=== PATIENT | male | born 1965 | race African-American/Black ===

== ENCOUNTER 2023-03-13 23:41 | Emergency (ER) | payer OTHER ==
--- OUTSIDE RECORDS SUMMARY | 2023-03-13 23:45 | XMS REPORT | Continuity of Care Document ---
:1965 Author Organization [facility] t Address [address] [place] [address] [place] [id number] Care Team Providers Name Role Phone MONICA WAYNE Primary Care Physician Unavailable Pob, [facility] Main Attending Clinician Unavailable Nader Johnson MD Attending Clinician NADER JOHNSON Attending Clinician Unavailable Doctor Unassigned, [place] Attending Clinician Unavailable MAGALIS SILVEIRA Attending Clinician Unavailable Magalis Silveira MD Attending Clinician NADER LOBATO Attending Clinician Unavailable Nader Lobato MD Attending Clinician Monica Wayne MD Attending Clinician MONICA WAYNE Attending Clinician Unavailable Zi White DO Attending Clinician Marialuisa Gaffney RN Attending Clinician Unavailable Yusra Street Attending Clinician Lorri Portillo Attending Clinician Jerry Sage MD Attending Clinician Lorri FORD Attending Clinician Unavailable MAGALIS SILVEIRA Admitting Clinician Unavailable NADER LOBATO Admitting Clinician Unavailable Nader Lobato MD Admitting Clinician Chu HORNER, Jerry García Admitting Clinician Payers Payer Name Policy Type Policy Number Effective Date Expiration Date S junior Problems Condition Condition Condition Status Onset Resolution Last Treating Co mments Source Name Details Category Date Date Treatment Clinician Date Gastroesop Gastroesop Disease Active U nivers hageal hageal 5-20 ity of reflux reflux 00:00: [place] disease disease 00 Medical Branch [place] Atlanto[place]i Disease Active U nivers al al 8-16 ity of instabilit [place] Medical [place] Obesity Obesity Disease Active Univers (BMI (BMI 8-16 ity of 30-39.9) 30-39.9) 00:00: 00 Medical Branch Hyperurice Hyperurice Disease Active Overview : Univers kenny kenny 12-04 Formattin ity of 00:00: g of this [place] note Medical might be Branch different from the original. Formattin g of this note might be different from the original. Controlle d with allopurin ol 100mg uric acid 06/2021 4.8 Intellectu Intellectu Disease Active U nivers al al 816 ity of functionin functionin [place] Medical disability disability Br anch Mixed Mixed Disease Active Overview: Univ s hyperlipid hyperlipid 12-04 Formattin ity of emia emia 00:00: g of this [place] note Medical might be Branch different from the original. Formattin g of this note might be different from the original. 06/2021 lipid profile total cholester ol 133, TG 89, HDL 53, LDL 62. Cont atorvasta tin Slow Slow Disease Active Univers transit transit 16 ity of constipati constipati [place] Medical [place] Stage 3a Stage 3a Disease Active Overview: Un [place] chronic chronic 12-04 Formattin ity o f kidney kidney 00:00: g of this [place] disease disease 00 note Medical might be Branch different from the original. Formattin g of this note might be different from the original. 06/2021 BUN/Creat 13/0.98 Type 2 Type 2 Disease Active Overview: Univer s diabetes diabetes 8-16 Formattin ity of mellitus mellitus 00:00: g of this [place] 00 note Medical might be Branch different from the original. Formattin g of this note might be different from the original. 06/2021 A1C 5.6%Last Assessmen t & Plan: Formattin g of this note might be different from the original. 01/30/22: repeat hgba1c 5.3 from 11/09 labs. Will reduce metformin to 500 mg daily. Repeat hgba1c in 3 months Allergies, Adverse Reactions, Alerts Allergy Allergy Status Severity Reaction(s) Onset Inactive Treating Comm ents Source Name Type Date Date Clinician NO KNOWN Drug Active Univers ALLERGIE Class ity of S [facility] Social History Social Habit Start Date Stop Date Quantity Comments Source Gender identity [facility] Sexual orientation [facility] Exposure to 2022-08-17 2022-08-27 Not sure [facility] SARS-CoV-2 (event) 00:00:00 10:07:00 [facility] Alcohol intake 2022-05-21 2022-05-21 Lifetime University of 00:00:00 00:00:00 non-drinker [facility] (finding) Branch History of Social 2022-05-21 2022-05-21 Univers ity of function 00:00:00 00:00:00 [facility] Tobacco use and 2022-03-01 2022-03-01 Smokeless Universit y of exposure 00:00:00 00:00:00 tobacco non-user [facility] dical Exline Sex Ass[birth year] At [birth year] Universit y of 00:00:00 00:00:00 [facility] Smoking Status Start Date Stop Date Source Never smoked tobacco [facility] Tobacco smoking consumption [facility] Branch Medications Ordered Filled Start Stop Current Ordering Indication Dosage Frequency Signature Comments Components Source Medication Medication Date Date Medication? Clinician (SIG) Name Name ketorolac No 30mg 30 mg, Unive rs (TORADOL) 05-21 Intramuscu ity of injection 19:00: 18:16 lar, ONCE, [place] 30 mg 00 :00 1 dose, On Medical Tue Branch 05/21/22 at 1300, Routine ibuprofen Yes [id number] 600mg Take 1 U nivers 600 mg 1-31 tablet by ity of tablet 00:00: mouth [place] 00 every 6 Medical (six) Branch hours as needed for Pain (scale 4-6). ibuprofen 3-0 Yes [id number] 600mg Take 1 U nivers 600 mg 1-31 tablet by ity of tablet 00:00: mouth [place] 00 every 6 Medical (six) Branch hours as needed for Pain (scale 4-6). ibuprofen 2022-0 Yes [id number] 600mg Take 1 U nivers 600 mg 1-31 tablet by ity of tablet 00:00: mouth [place] 00 every 6 Medical (six) Branch hours as needed for Pain (scale 4-6). ibuprofen 2022-0 Yes [id number] 600mg Take 1 U nivers 600 mg 1-31 tablet by ity of tablet 00:00: mouth [place] 00 every 6 Medical (six) Branch hours as needed for Pain (scale 4-6). ibuprofen 2022-0 Yes [id number] 600mg Take 1 U nivers 600 mg 1-31 tablet by ity of tablet 00:00: mouth [place] 00 every 6 Medical (six) Branch hours as needed for Pain (scale 4-6). neomycin-po 2021-04- No PRN, Unive rs lymyxin-dex 05-07 Starting ity of amethasone 18:46: 19[facility] :23 03/07/22 Medic al 3.5 at 1246, Branch mg/g-10,000 Until [facility] unit/g-0.1 03/07/22 % at 1308, ophthalmic Routine, ointment Intra-op NaCl 0.9% 2021-04- No PRN, Univers (NS) 05-07 Starting ity of injection 18:44: 19:08 on Patricia [place] 00 :23 03/07/22 Medical at 1244, Branch Until Patricia 03/07/22 at 1308, Routine, Intra-op gentamicin 2021-04- No PRN, Univer s injection 05-07 Starting ity o f 18:44: 19:08 on Patricia [place] 00 :23 03/07/22 Medical at 1244, Branch Until [place] 03/07/22 at 1308, GREG, Intra-op dexamethaso 2021-04- No PRN, Unive rs ne 05-07 Starting ity of (DECADRON 18:44: 19:08 on Patricia [place] PHOSPHATE) 00 :23 03/07/22 Medic al injection at 1244, Branch Until [place] 03/07/22 at 1308, Routine, Intra-op ceFAZolin 2021-04- No PRN, Univers (ANCEF) 05-07 Starting ity of injection 18:44: 19:08 on Patricia [place] 00 :23 03/07/22 Medical at 1244, Branch Until [place] 03/07/22 at 1308, GREG, Intra-op EPINEPHrine 2021-04- No PRN, Unive rs (PF) 05-07 Starting ity of 1:1,000 (1 18:21: 19:08 on [place] mg/mL) 00 :23 03/07/22 Medical (ADRENALIN at 1221, Branc h (PF)) Until [place] injection 03/07/22 at 1308, Routine, Intra-op chondroitin 2021-04- No PRN, Unive rs sulf-sod 05-07 Starting ity of hyaluronate 18:21: 19:08 on [place] (DUOVISC 00 :23 03/07/22 Medical VISCO at 1221, Branch ELASTIC) Until [place] intraocular 03/07/22 injection at 1308, Routine, Intra-op balanced 2021-04- No PRN, Univers salt soln 05-07 Starting ity o f no.2 irrig. 18:21: 19:08 on [place] (BSS) 00 :23 03/07/22 Medical ophthalmic at 1221, Branc h solution Until [place] 03/07/22 at 1308, Routine, Intra-op water for 2021-04- No PRN, Univers irrigation 05-07 Starting ity of irrigation 18:19: 19:08 on [place] solution 00 :23 03/07/22 Medical at 1219, Branch Until [place] 03/07/22 at 1308, Routine, Intra-op tetracaine 2021-04- No PRN, Univer s (PONTOCAINE 05-07 Starting ity of ) 0.5 % 18:17: 19:08 on [facility] ophthalmic 00 :23 03/07/22 Medic al drops at 1217, Branch Until [place] 03/07/22 at 1308, Routine, Intra-op cyclopent 2021-04- No .5mL 0.5 mL, Univ ers 1%-tropic 05-07 Right Eye, ity of 1%-phenyl 17:00: 16:57 ONCE, 1 [place] 2.5%-ketor 00 :00 dose, On Medic al 0.5% [facility] Branch (MYDRIATIC 03/07/22 #5) at 1100, ophthalmic Routine, solution DSU Pre-op syringe 0.5 mL lactated 2021-04- No 1000mL at 42 Unive rs ringers IV 05-07 11-17 mL/hr, ity of infusion 17:00: 17:29 1,000 mL, [place] 1,000 mL 00 :00 IV Medical Infusion, Branch ONCE, 1 dose, On Fri03/07/22 at 1100, Routine, DSU Pre-op cyclopent 2021-04- No .5mL 0.5 mL, Univ ers 1%-tropic 05-07 Right Eye, ity of 1%-phenyl 17:00: 16:57 ONCE, 1 [place] 2.5%-ketor 00 :00 dose, On Medic al 0.5% [facility] Branch (MYDRIATIC 03/07/22 #5) at 1100, ophthalmic Routine, solution DSU Pre-op syringe 0.5 mL lactated 2021-04- No 1000mL at 42 Unive rs ringers IV 05-07 11-17 mL/hr, ity of infusion 17:00: 17:29 1,000 mL, [place] 1,000 mL 00 :00 IV Medical Infusion, Branch ONCE, 1 dose, On Fri03/07/22 at 1100, Routine, DSU Pre-op atorvastati 2021-04 Yes 10mg Take 10 mg Univers n 10 mg 1-17 by mouth ity of tablet 14:12: at [place] 56 bedtime. Medical Branch allopurinol 2021-04 Yes 100mg Take 100 U nivers 100 mg 1-17 mg by ity of tablet 14:12: mouth [place] daily. Medical Branch metFORMIN 2021-04 Yes 500mg Take 500 Uni vers 500 mg 1-17 mg by ity of tablet 14:12: mouth in [place] 56 the Medical morning. Branch simvastatin 2021-04 Yes 10mg Take 10 mg Univers 10 mg 1-17 by mouth ity of tablet 14:12: at [place] [address] bedtime. Medical Branch CALCIUM 2021-04 Yes 5000U Take 5,000 Uni vers CARBONATE/V 1-17 Units by ity of ITAMIN D3 14:12: mouth. [place] (VITAMIN 56 Medical D-3 ORAL) Branch acetaminoph 2021-04 Yes Take by Uni vers en 325 mg 1-17 mouth ity of tablet 14:12: every 6 [place] 56 (six) Medical hours as Branch needed. diphenhydrA 2021-04 Yes 25mg Take 25 mg Univers MINE 25 mg 1-17 by mouth ity o f capsule 14:12: every 6 [place] 56 (six) Medical hours as Branch needed for Allergies. bismuth 2021-04 Yes Take by Univers subsalicyla 1-17 mouth ity of [place] 262 14:12: every 6 [place] mg/15 mL 56 (six) Medical suspension hours as Branc h needed. guaiFENesin 2021-04 Yes Take by Uni vers 100 mg/5 mL 1-17 mouth ity of solution 14:12: every 4 [place] 56 (four) Medical hours. Branch lactulose 2021-04 Yes 15mL Take 15 mL Un [place]ony 10 gram/15 1-17 by mouth 2 ity of mL solution 14:12: (two) [place] [address] times Medical daily as Branch needed. loratadine 2021-04 Yes 10mg Take 10 mg U nivers 10 mg 1-17 by mouth ity of tablet 14:12: at bedtime [place] as needed. Medical Branch MAGNESIUM 2021-04 Yes 1{dose} Take 1 Uni vers HYDROXIDE 1-17 Dose by ity of (MILK OF 14:12: mouth as [place] MAGNESIA 56 needed. Medical ORAL) Branch furosemide 2021-04 Yes 20mg Take 20 mg U nivers 20 mg 1-17 by mouth ity of tablet 14:12: every [place] [address] morning Medical and Branch evening. OMEGA-3 2021-04 Yes 1{capsu Take 1 Unive rs FATTY 1-17 le} capsule by ity of ACIDS/FISH 14:12: mouth [place] OIL (OMEGA 56 daily. Medical 3 FISH OIL Branch ORAL) Cholecalcif 2021-04 Yes 1{tbl} Take 1 Un [place] vilma, 1-17 tablet by ity of Vitamin D3, 14:12: mouth [place] 125 mcg 56 daily. Medical (5,000 Branch unit) tablet melatonin 2021-04 Yes 10mg Take 10 mg Un tony 10 mg Tab 1-17 by mouth ity of 14:12: daily. [place] 56 Medical Branch atorvastati 2021-04 Yes 10mg Take 10 mg Univers n 10 mg 1-17 by mouth ity of tablet 14:12: at [place] [address] bedtime. Medical Branch allopurinol 2021-04 Yes 100mg Take 100 U nivers 100 mg 1-17 mg by ity of tablet 14:12: mouth [place] 56 daily. Medical Branch metFORMIN 2021-04 Yes 500mg Take 500 Uni vers 500 mg 1-17 mg by ity of tablet 14:12: mouth in [place] [address] the Medical morning. Branch simvastatin 2021-04 Yes 10mg Take 10 mg Univers 10 mg 1-17 by mouth ity of tablet 14:12: at [place] [address] bedtime. Medical Branch CALCIUM 2021-04 Yes 5000U Take 5,000 Uni vers CARBONATE/V 1-17 Units by ity of ITAMIN D3 14:12: mouth. [place] (VITAMIN 56 Medical D-3 ORAL) Branch acetaminoph 2021-04 Yes Take by Uni vers en 325 mg 1-17 mouth ity of tablet 14:12: every 6 [place] [address] (six) Medical hours as Branch needed. diphenhydrA 2021-04 Yes 25mg Take 25 mg Univers MINE 25 mg 1-17 by mouth ity o f capsule 14:12: every 6 [place] [address] (six) Medical hours as Branch needed for Allergies. bismuth 2021-04 Yes Take by Univers subsalicyla 1-17 mouth ity of [place] 14:12: every 6 [place] mg/15 mL 56 (six) Medical suspension hours as Branc h needed. guaiFENesin 2021-04 Yes Take by Uni vers 100 mg/5 mL 1-17 mouth ity of solution 14:12: every 4 [place] [address] (four) Medical hours. Branch lactulose 2021-04 Yes 15mL Take 15 mL Un [place]ony 10 gram/15 1-17 by mouth 2 ity of mL solution 14:12: (two) [place] 56 times Medical daily as Branch needed. loratadine 2021-04 Yes 10mg Take 10 mg U nivers 10 mg 1-17 by mouth ity of tablet 14:12: at bedtime [place] 56 as needed. Medical Branch MAGNESIUM 2021-04 Yes 1{dose} Take 1 Uni vers HYDROXIDE 1-17 Dose by ity of (MILK OF 14:12: mouth as [place] MAGNESIA 56 needed. Medical ORAL) Branch furosemide 2021-04 Yes 20mg Take 20 mg U nivers 20 mg 1-17 by mouth ity of tablet 14:12: every [place] 56 morning Medical and Branch evening. OMEGA-3 2021-04 Yes 1{capsu Take 1 Unive rs FATTY 1-17 le} capsule by ity of ACIDS/FISH 14:12: mouth [place] OIL (OMEGA 56 daily. Medical 3 FISH OIL Branch ORAL) Cholecalcif 2021-04 Yes 1{tbl} Take 1 Un [place] vilma, 1-17 tablet by ity of Vitamin D3, 14:12: mouth [place] 125 mcg 56 daily. Medical (5,000 Branch unit) tablet melatonin 2021-04 Yes 10mg Take 10 mg Un tony 10 mg Tab 1-17 by mouth ity of 14:12: daily. [place] 56 Medical Branch atorvastati 2021-04 Yes 10mg Take 10 mg Univers n 10 mg 1-17 by mouth ity of tablet 14:12: at [place] 56 bedtime. Medical Branch allopurinol 2021-04 Yes 100mg Take 100 U nivers 100 mg 1-17 mg by ity of tablet 14:12: mouth [place] 56 daily. Medical Branch metFORMIN 2021-04 Yes 500mg Take 500 Uni vers 500 mg 1-17 mg by ity of tablet 14:12: mouth in [place] 56 the Medical morning. Branch simvastatin 2021-04 Yes 10mg Take 10 mg Univers 10 mg 1-17 by mouth ity of tablet 14:12: at [place] 56 bedtime. Medical Branch CALCIUM 2021-04 Yes 5000U Take 5,000 Uni vers CARBONATE/V 1-17 Units by ity of ITAMIN D3 14:12: mouth. [place] (VITAMIN 56 Medical D-3 ORAL) Branch acetaminoph 2021-04 Yes Take by Uni vers en 325 mg 1-17 mouth ity of tablet 14:12: every 6 [place] 56 (six) Medical hours as Branch needed. diphenhydrA 2021-04 Yes 25mg Take 25 mg Univers MINE 25 mg 1-17 by mouth ity o f capsule 14:12: every 6 [place] 56 (six) Medical hours as Branch needed for Allergies. bismuth 2021-04 Yes Take by Univers subsalicyla 1-17 mouth ity of [place] 14:12: every 6 [place] mg/15 mL 56 (six) Medical suspension hours as Branc h needed. guaiFENesin 2021-04 Yes Take by Uni vers 100 mg/5 mL 1-17 mouth ity of solution 14:12: every 4 [place] 56 (four) Medical hours. Branch lactulose 2021-04 Yes 15mL Take 15 mL Un tony 10 gram/15 -17 by mouth 2 ity of mL solution 14:12: (two) [place] 56 times Medical daily as Branch needed. loratadine 2021-04 Yes 10mg Take 10 mg U nivers 10 mg 1-17 by mouth ity of tablet 14:12: at bedtime [place] 56 as needed. Medical Branch MAGNESIUM 2021-04 Yes 1{dose} Take 1 Uni vers HYDROXIDE 1-17 Dose by ity of (MILK OF 14:12: mouth as [place] MAGNESIA 56 needed. Medical ORAL) Branch furosemide 2021-04 Yes 20mg Take 20 mg U nivers 20 mg 1-17 by mouth ity of tablet 14:12: every [place] 56 morning Medical and Branch evening. OMEGA-3 2021-04 Yes 1{capsu Take 1 Unive rs FATTY 1-17 le} capsule by ity of ACIDS/FISH 14:12: mouth [place] OIL (OMEGA 56 daily. Medical 3 FISH OIL Branch ORAL) Cholecalcif 2021-04 Yes 1{tbl} Take 1 Un [place] vilma, 1-17 tablet by ity of Vitamin D3, 14:12: mouth [place] 125 mcg 56 daily. Medical (5,000 Branch unit) tablet melatonin 2021-04 Yes 10mg Take 10 mg Un tony 10 mg Tab 1-17 by mouth ity of 14:12: daily. [place] 56 Medical Branch atorvastati 2021-04 Yes 10mg Take 10 mg Univers n 10 mg 1-17 by mouth ity of tablet 14:12: at [place] 56 bedtime. Medical Branch allopurinol 2021-04 Yes 100mg Take 100 U nivers 100 mg 1-17 mg by ity of tablet 14:12: mouth [place] 56 daily. Medical Branch metFORMIN 2021-04 Yes 500mg Take 500 Uni vers 500 mg 1-17 mg by ity of tablet 14:12: mouth in [place] 56 the Medical morning. Branch simvastatin 2021-04 Yes 10mg Take 10 mg Univers 10 mg 1-17 by mouth ity of tablet 14:12: at [place] [address] bedtime. Medical Branch CALCIUM 2021-04 Yes 5000U Take 5,000 Uni vers CARBONATE/V 1-17 Units by ity of ITAMIN D3 14:12: mouth. [place] (VITAMIN 56 Medical D-3 ORAL) Branch acetaminoph 2021-04 Yes Take by Uni vers en 325 mg 1-17 mouth ity of tablet 14:12: every 6 [place] 56 (six) Medical hours as Branch needed. diphenhydrA 2021-04 Yes 25mg Take 25 mg Univers MINE 25 mg 1-17 by mouth ity o f capsule 14:12: every 6 [place] 56 (six) Medical hours as Branch needed for Allergies. bismuth 2021-04 Yes Take by Univers subsalicyla 1-17 mouth ity of te 262 14:12: every 6 [place] mg/15 mL 56 (six) Medical suspension hours as Branc h needed. guaiFENesin 2021-04 Yes Take by Uni vers 100 mg/5 mL 1-17 mouth ity of solution 14:12: every 4 [place] 56 (four) Medical hours. Branch lactulose 2021-04 Yes 15mL Take 15 mL Un tony 10 gram/15 -17 by mouth 2 ity of mL solution 14:12: (two) [place] 56 times Medical daily as Branch needed. loratadine 2021-04 Yes 10mg Take 10 mg U nivers 10 mg 1-17 by mouth ity of tablet 14:12: at bedtime [place] as needed. Medical Branch MAGNESIUM 2021-04 Yes 1{dose} Take 1 Uni vers HYDROXIDE 1-17 Dose by ity of (MILK OF 14:12: mouth as [place] MAGNESIA 56 needed. Medical ORAL) Branch furosemide 2021-04 Yes 20mg Take 20 mg U nivers 20 mg 1-17 by mouth ity of tablet 14:12: every [place] 56 morning Medical and Branch evening. OMEGA-3 2021-04 Yes 1{capsu Take 1 Unive rs FATTY 1-17 le} capsule by ity of ACIDS/FISH 14:12: mouth [place] OIL (OMEGA 56 daily. Medical 3 FISH OIL Branch ORAL) Cholecalcif 2021-04 Yes 1{tbl} Take 1 Un [place] vilma, 1-17 tablet by ity of Vitamin D3, 14:12: mouth [place] 125 mcg 56 daily. Medical (5,000 Branch unit) tablet melatonin 2021-04 Yes 10mg Take 10 mg Un tony 10 mg Tab 1-17 by mouth ity of 14:12: daily. [place] 56 Medical Branch atorvastati 2021-04 Yes 10mg Take 10 mg Univers n 10 mg 1-17 by mouth ity of tablet 14:12: at [place] [address] bedtime. Medical Branch allopurinol 2021-04 Yes 100mg Take 100 U nivers 100 mg 1-17 mg by ity of tablet 14:12: mouth [place] 56 daily. Medical Branch metFORMIN 2021-04 Yes 500mg Take 500 Uni vers 500 mg 1-17 mg by ity of tablet 14:12: mouth in [place] [address] the Medical morning. Branch simvastatin 2021-04 Yes 10mg Take 10 mg Univers 10 mg 1-17 by mouth ity of tablet 14:12: at [place] [address] bedtime. Medical Branch CALCIUM 2021-04 Yes 5000U Take 5,000 Uni vers CARBONATE/V 1-17 Units by ity of ITAMIN D3 14:12: mouth. [place] (VITAMIN 56 Medical D-3 ORAL) Branch acetaminoph 2021-04 Yes Take by Uni vers en 325 mg 1-17 mouth ity of tablet 14:12: every 6 [place] [address] (six) Medical hours as Branch needed. diphenhydrA 2021-04 Yes 25mg Take 25 mg Univers MINE 25 mg 1-17 by mouth ity o f capsule 14:12: every 6 [place] (six) Medical hours as Branch needed for Allergies. bismuth 2021-04 Yes Take by Univers subsalicyla 1-17 mouth ity of [place] 14:12: every 6 [place] mg/15 mL 56 (six) Medical suspension hours as Branc h needed. guaiFENesin 2021-04 Yes Take by Uni vers 100 mg/5 mL 1-17 mouth ity of solution 14:12: every 4 [place] (four) Medical hours. Branch lactulose 2021-04 Yes 15mL Take 15 mL Un tony 10 gram/15 1-17 by mouth 2 ity of mL solution 14:12: (two) [place] 56 times Medical daily as Branch needed. loratadine 2021-04 Yes 10mg Take 10 mg U nivers 10 mg 1-17 by mouth ity of tablet 14:12: at bedtime [place] 56 as needed. Medical Branch MAGNESIUM 2021-04 Yes 1{dose} Take 1 Uni vers HYDROXIDE 1-17 Dose by ity of (MILK OF 14:12: mouth as [place] MAGNESIA 56 needed. Medical ORAL) Branch furosemide 2021-04 Yes 20mg Take 20 mg U nivers 20 mg 1-17 by mouth ity of tablet 14:12: every [place] 56 morning Medical and Branch evening. OMEGA-3 2021-04 Yes 1{capsu Take 1 Unive rs FATTY 1-17 le} capsule by ity of ACIDS/FISH 14:12: mouth [place] OIL (OMEGA 56 daily. Medical 3 FISH OIL Branch ORAL) Cholecalcif 2021-04 Yes 1{tbl} Take 1 Un [place] vilma, 1-17 tablet by ity of Vitamin D3, 14:12: mouth [place] 125 mcg 56 daily. Medical (5,000 Branch unit) tablet melatonin 2021-04 Yes 10mg Take 10 mg Un tony 10 mg Tab 1-17 by mouth ity of 14:12: daily. [place] 56 Medical Branch atorvastati 2021-04 Yes 10mg Take 10 mg Univers n 10 mg 1-17 by mouth ity of tablet 14:12: at [place] bedtime. Medical Branch allopurinol 2021-04 Yes 100mg Take 100 U nivers 100 mg 1-17 mg by ity of tablet 14:12: mouth [place] 56 daily. Medical Branch metFORMIN 2021-04 Yes 500mg Take 500 Uni vers 500 mg 1-17 mg by ity of tablet 14:12: mouth in [place] 56 the Medical morning. Branch simvastatin 2021-04 Yes 10mg Take 10 mg Univers 10 mg 1-17 by mouth ity of tablet 14:12: at [place] 56 bedtime. Medical Branch CALCIUM 2021-04 Yes 5000U Take 5,000 Uni vers CARBONATE/V 1-17 Units by ity of ITAMIN D3 14:12: mouth. [place] (VITAMIN 56 Medical D-3 ORAL) Branch acetaminoph 2021-04 Yes Take by Uni vers en 325 mg 1-17 mouth ity of tablet 14:12: every 6 [place] 56 (six) Medical hours as Branch needed. diphenhydrA 2021-04 Yes 25mg Take 25 mg Univers MINE 25 mg 1-17 by mouth ity o f capsule 14:12: every 6 [place] 56 (six) Medical hours as Branch needed for Allergies. bismuth 2021-04 Yes Take by Univers subsalicyla 1-17 mouth ity of [place] 14:12: every 6 [place] mg/15 mL 56 (six) Medical suspension hours as Branc h needed. guaiFENesin 2021-04 Yes Take by Uni vers 100 mg/5 mL 1-17 mouth ity of solution 14:12: every 4 [place] 56 (four) Medical hours. Branch lactulose 2021-04 Yes 15mL Take 15 mL Un tony 10 gram/15 1-17 by mouth 2 ity of mL solution 14:12: (two) [place] 56 times Medical daily as Branch needed. loratadine 2021-04 Yes 10mg Take 10 mg U nivers 10 mg 1-17 by mouth ity of tablet 14:12: at bedtime [place] 56 as needed. Medical Branch MAGNESIUM 2021-04 Yes 1{dose} Take 1 Uni vers HYDROXIDE 1-17 Dose by ity of (MILK OF 14:12: mouth as [place] MAGNESIA 56 needed. Medical ORAL) Branch furosemide 2021-04 Yes 20mg Take 20 mg U nivers 20 mg 1-17 by mouth ity of tablet 14:12: every [place] 56 morning Medical and Branch evening. OMEGA-3 2021-04 Yes 1{capsu Take 1 Unive rs FATTY 1-17 le} capsule by ity of ACIDS/FISH 14:12: mouth [place] OIL (OMEGA 56 daily. Medical 3 FISH OIL Branch ORAL) Cholecalcif 2021-04 Yes 1{tbl} Take 1 Un tony vilma, 1-17 tablet by ity of Vitamin D3, 14:12: mouth [place] 125 mcg 56 daily. Medical (5,000 Branch unit) tablet melatonin 2021-04 Yes 10mg Take 10 mg Un tony 10 mg Tab 1-17 by mouth ity of 14:12: daily. [place] 56 Medical Branch atorvastati 2021-04 Yes 10mg Take 10 mg Univers n 10 mg 1-17 by mouth ity of tablet 14:12: at [place] 56 bedtime. Medical Branch allopurinol 2021-04 Yes 100mg Take 100 U nivers 100 mg 1-17 mg by ity of tablet 14:12: mouth [place] 56 daily. Medical Branch metFORMIN 2021-04 Yes 500mg Take 500 Uni vers 500 mg 1-17 mg by ity of tablet 14:12: mouth in [place] 56 the Medical morning. Branch simvastatin 2021-04 Yes 10mg Take 10 mg Univers 10 mg 1-17 by mouth ity of tablet 14:12: at [place] [address] bedtime. Medical Branch CALCIUM 2021-04 Yes 5000U Take 5,000 Uni vers CARBONATE/V 1-17 Units by ity of ITAMIN D3 14:12: mouth. [place] (VITAMIN 56 Medical D-3 ORAL) Branch acetaminoph 2021-04 Yes Take by Uni vers en 325 mg 1-17 mouth ity of tablet 14:12: every 6 [place] 56 (six) Medical hours as Branch needed. diphenhydrA 2021-04 Yes 25mg Take 25 mg Univers MINE 25 mg 1-17 by mouth ity o f capsule 14:12: every 6 [place] 56 (six) Medical hours as Branch needed for Allergies. bismuth 2021-04 Yes Take by Univers subsalicyla 1-17 mouth ity of te 262 14:12: every 6 [place] mg/15 mL 56 (six) Medical suspension hours as Branc h needed. guaiFENesin 2021-04 Yes Take by Uni vers 100 mg/5 mL 1-17 mouth ity of solution 14:12: every 4 [place] 56 (four) Medical hours. Branch lactulose 2021-04 Yes 15mL Take 15 mL Un tony 10 gram/15 -17 by mouth 2 ity of mL solution 14:12: (two) [place] 56 times Medical daily as Branch needed. loratadine 2021-04 Yes 10mg Take 10 mg U nivers 10 mg 1-17 by mouth ity of tablet 14:12: at bedtime [place] as needed. Medical Branch MAGNESIUM 2021-04 Yes 1{dose} Take 1 Uni vers HYDROXIDE 1-17 Dose by ity of (MILK OF 14:12: mouth as [place] MAGNESIA 56 needed. Medical ORAL) Branch furosemide 2021-04 Yes 20mg Take 20 mg U nivers 20 mg 1-17 by mouth ity of tablet 14:12: every [place] 56 morning Medical and Branch evening. OMEGA-3 2021-04 Yes 1{capsu Take 1 Unive rs FATTY 1-17 le} capsule by ity of ACIDS/FISH 14:12: mouth [place] OIL (OMEGA 56 daily. Medical 3 FISH OIL Branch ORAL) Cholecalcif 2021-04 Yes 1{tbl} Take 1 Un [place]ony vilma, 1-17 tablet by ity of Vitamin D3, 14:12: mouth [place] 125 mcg 56 daily. Medical (5,000 Branch unit) tablet melatonin 2021-04 Yes 10mg Take 10 mg Un tony 10 mg Tab 1-17 by mouth ity of 14:12: daily. [place] 56 Medical Branch atorvastati 2021-04 Yes 10mg Take 10 mg [facility] n 10 mg 1-17 by mouth ity of tablet 14:12: at [place] bedtime. Medical Branch allopurinol 2021-04 Yes 100mg Take 100 U nivers 100 mg 1-17 mg by ity of tablet 14:12: mouth [place] 56 daily. Medical Branch metFORMIN 2021-04 Yes 500mg Take 500 Uni vers 500 mg 1-17 mg by ity of tablet 14:12: mouth in [place] 56 the Medical morning. Branch simvastatin 2021-04 Yes 10mg Take 10 mg [facility] 10 mg 1-17 by mouth ity of tablet 14:12: at [place] [id number] bedtime. Medical Branch CALCIUM 2021-04 Yes 5000U Take 5,000 Uni vers CARBONATE/V 1-17 Units by ity of ITAMIN D3 14:12: mouth. [place] (VITAMIN 56 Medical D-3 ORAL) Branch acetaminoph 2021-04 Yes Take by [facility] vers en 325 mg 1-17 mouth ity of tablet 14:12: every 6 [place] (six) Medical hours as Branch needed. diphenhydrA 2021-04 Yes 25mg Take 25 mg [facility] MINE 25 mg 1-17 by mouth ity o f capsule 14:12: every 6 [place] 56 (six) Medical hours as Branch needed for Allergies. bismuth 2021-04 Yes Take by [facility] subsalicyla 1-17 mouth ity of te 262 14:12: every 6 [place] mg/15 mL 56 (six) Medical suspension hours as Branc h needed. guaiFENesin 2021-04 Yes Take by [facility] vers 100 mg/5 mL 1-17 mouth ity of solution 14:12: every 4 [place] 56 (four) Medical hours. Branch lactulose 2021-04 Yes 15mL Take 15 mL Un tony 10 gram/15 1-17 by mouth 2 ity of mL solution 14:12: (two) [place] 56 times Medical daily as Branch needed. loratadine 2021-04 Yes 10mg Take 10 mg U nivers 10 mg 1-17 by mouth ity of tablet 14:12: at bedtime [place] 56 as needed. Medical Branch MAGNESIUM 2021-04 Yes 1{dose} Take 1 Uni vers HYDROXIDE 1-17 Dose by ity of (MILK OF 14:12: mouth as [place] MAGNESIA 56 needed. Medical ORAL) Branch furosemide 2021-04 Yes 20mg Take 20 mg U nivers 20 mg 1-17 by mouth ity of tablet 14:12: every [place] 56 morning Medical and Branch evening. OMEGA-3 2021-04 Yes 1{capsu Take 1 Unive rs FATTY 1-17 le} capsule by ity of ACIDS/FISH 14:12: mouth [place] OIL (OMEGA 56 daily. Medical 3 FISH OIL Branch ORAL) Cholecalcif 2021-04 Yes 1{tbl} Take 1 Un [place] vilma, 1-17 tablet by ity of Vitamin D3, 14:12: mouth [place] 125 mcg 56 daily. Medical (5,000 Branch unit) tablet melatonin 2021-04 Yes 10mg Take 10 mg Un tony 10 mg Tab 1-17 by mouth ity of 14:12: daily. [place] 56 Medical Branch atorvastati 2021-04 Yes 10mg Take 10 mg [facility] n 10 mg 1-17 by mouth ity of tablet 14:12: at [place] 56 bedtime. Medical Branch allopurinol 2021-04 Yes 100mg Take 100 U nivers 100 mg 1-17 mg by ity of tablet 14:12: mouth [place] 56 daily. Medical Branch metFORMIN 2021-04 Yes 500mg Take 500 Uni vers 500 mg 1-17 mg by ity of tablet 14:12: mouth in [place] 56 the Medical morning. Branch simvastatin 2021-04 Yes 10mg Take 10 mg [facility] 10 mg 1-17 by mouth ity of tablet 14:12: at [place] 56 bedtime. Medical Branch CALCIUM 2021-04 Yes 5000U Take 5,000 Uni vers CARBONATE/V 1-17 Units by ity of ITAMIN D3 14:12: mouth. [place] (VITAMIN 56 Medical D-3 ORAL) Branch acetaminoph 2021-04 Yes Take by [facility] vers en 325 mg 1-17 mouth ity of tablet 14:12: every 6 [place] 56 (six) Medical hours as Branch needed. diphenhydrA 2021-04 Yes 25mg Take 25 mg [facility] MINE 25 mg 1-17 by mouth ity o f capsule 14:12: every 6 [place] 56 (six) Medical hours as Branch needed for Allergies. bismuth 2021-04 Yes Take by [facility] subsalicyla 1-17 mouth ity of te 262 14:12: every 6 [place] mg/15 mL 56 (six) Medical suspension hours as Branc h needed. guaiFENesin 2021-04 Yes Take by [facility] vers 100 mg/5 mL 1-17 mouth ity of solution 14:12: every 4 [place] 56 (four) Medical hours. Branch lactulose 2021-04 Yes 15mL Take 15 mL Un tony 10 gram/15 1-17 by mouth 2 ity of mL solution 14:12: (two) [place] 56 times Medical daily as Branch needed. loratadine 2021-04 Yes 10mg Take 10 mg U nivers 10 mg 1-17 by mouth ity of tablet 14:12: at bedtime [place] 56 as needed. Medical Branch MAGNESIUM 2021-04 Yes 1{dose} Take 1 Uni vers HYDROXIDE 1-17 Dose by ity of (MILK OF 14:12: mouth as [place] MAGNESIA 56 needed. Medical ORAL) Branch furosemide 2021-04 Yes 20mg Take 20 mg U nivers 20 mg 1-17 by mouth ity of tablet 14:12: every [place] 56 morning Medical and Branch evening. OMEGA-3 2021-04 Yes 1{capsu Take 1 Unive rs FATTY 1-17 le} capsule by ity of ACIDS/FISH 14:12: mouth [place] OIL (OMEGA 56 daily. Medical 3 FISH OIL Branch ORAL) Cholecalcif 2021-04 Yes 1{tbl} Take 1 Un [place] vilma, 1-17 tablet by ity of Vitamin D3, 14:12: mouth [place] 125 mcg 56 daily. Medical (5,000 Branch unit) tablet melatonin 2021-04 Yes 10mg Take 10 mg Un tony 10 mg Tab 1-17 by mouth ity of 14:12: daily. [place] 56 Medical Branch furosemide 2021-04- No 20mg Take 20 mg [facility] 20 mg 1-17 11-17 by mouth ity of tablet 12:51: 00:00 daily. [place] 47 :00 Medical Branch furosemide 2021-04- No 20mg Take 20 mg Univers 20 mg 05-07-17 by mouth ity of tablet 12:51: 00:00 daily. [place] 47 :00 Medical Branch losartan 50 2021-04- No 50mg Take 50 mg Univers mg tablet 05-01 by mouth ity o f 10:59: 00:00 daily. [place] 04 :00 Medical Branch losartan 50 2021-04- No 50mg Take 50 mg Univers mg tablet 05-01 by mouth ity o f 10:59: 00:00 daily. [place] 04 :00 Medical Branch telmisartan 2021-2022- No 40mg Take 40 mg Univers 40 mg 818 02-15 by mouth ity of tablet 00:00: 05:59 in the [place] 00 :00 morning. Medical Branch telmisartan 2021-0 2022- No 40mg Take 40 mg [facility] 40 mg 818 02-15 by mouth ity of tablet 00:00: 05:59 in the [place] 00 :00 morning. Medical Branch telmisartan 2021-0 2022- No 40mg Take 40 mg [facility] 40 mg 8-18 02-15 by mouth ity of tablet 00:00: 05:59 in the [place] 00 :00 morning. Medical Branch telmisartan 2021-0 2022- No 40mg Take 40 mg [facility] 40 mg 8-18 02-15 by mouth ity of tablet 00:00: 05:59 in the [place] 00 :00 morning. Medical Branch telmisartan 2021-0 2022- No 40mg Take 40 mg [facility] 40 mg 8-18 02-15 by mouth ity of tablet 00:00: 05:59 in the [place] 00 :00 morning. Medical Branch omeprazole 2021-0 Yes 1{capsu Take 1 Un tony 40 mg 8-03 le} capsule by ity of capsule 00:00: mouth in [place] 00 the Medical morning. Branch omeprazole 2021-0 Yes 1{capsu Take 1 Un tony 40 mg 8-03 le} capsule by ity of capsule 00:00: mouth in [place] 00 the Medical morning. Branch omeprazole 2021-0 Yes 1{capsu Take 1 Un tony 40 mg 8-03 le} capsule by ity of capsule 00:00: mouth in [place] 00 the Medical morning. Branch omeprazole 2021-0 Yes 1{capsu Take 1 Un tony 40 mg 8-03 le} capsule by ity of capsule 00:00: mouth in [place] the Medical morning. Branch omeprazole 2021-0 Yes 1{capsu Take 1 Un tony 40 mg 8-03 le} capsule by ity of capsule 00:00: mouth in [place] the Medical morning. Branch omeprazole 2021-0 Yes 1{capsu Take 1 Un tony 40 mg 8-03 le} capsule by ity of capsule 00:00: mouth in [place] the Medical morning. Branch omeprazole 2021-0 Yes 1{capsu Take 1 Un tony 40 mg 8-03 le} capsule by ity of capsule 00:00: mouth in [place] the Medical morning. Branch omeprazole 2021-0 Yes 1{capsu Take 1 Un tony 40 mg 8-03 le} capsule by ity of capsule 00:00: mouth in [place] the Medical morning. Branch omeprazole 2021-0 Yes 1{capsu Take 1 Un tony 40 mg 8-03 le} capsule by ity of capsule 00:00: mouth in [place] the Medical morning. Branch atorvastati 2020-0 Yes 10mg Take 10 mg [facility] n 10 mg 8-16 by mouth ity of tablet 22:36: at [place] [address] bedtime. Medical Branch allopurinol 2020-0 Yes 100mg Take 100 U nivers 100 mg 8-16 mg by ity of tablet 22:36: mouth [place] [address] daily. Medical Branch furosemide 2020-0 Yes 20mg Take 20 mg U nivers 20 mg 8-16 by mouth ity of tablet 22:36: daily. [place] [address] Medical Branch losartan 50 2020-0 Yes 50mg Take 50 mg [facility] mg tablet 8-16 by mouth ity of 22:36: daily. [place] [address] Medical Branch metFORMIN 2020-0 Yes 500mg Take 500 Uni vers 500 mg 8-16 mg by ity of tablet 22:36: mouth 2 [place] [address] (two) Medical times Branch daily with meals. simvastatin 2020-0 Yes 10mg Take 10 mg [facility] 10 mg 8-16 by mouth ity of tablet 22:36: at [place] [address] bedtime. Medical Branch CALCIUM 2020-0 Yes 5000U Take 5,000 Uni vers CARBONATE/V 8-16 Units by ity of ITAMIN D3 22:36: mouth. [place] (VITAMIN 44 Medical D-3 ORAL) Branch acetaminoph 2020-0 Yes Take by Uni vers en 325 mg 8-16 mouth ity of tablet 22:36: every 6 [place] 44 (six) Medical hours as Branch needed. diphenhydrA 2020-0 Yes 25mg Take 25 mg [facility] MINE 8-16 by mouth ity of (BANOPHEN) 22:36: [facility] ([facility] Medical capsule hours as Branch needed for Allergies. bismuth 2020-0 Yes Take by Univers subsalicyla 8-16 mouth ity of te 22:36: every 6 [place] (BISMATROL) 44 (six) Medical 262 mg/15 hours as Branch mL needed. suspension guaiFENesin 2020-0 Yes Take by Uni vers 100 mg/5 mL 8-16 mouth ity of solution 22:36: every 4 [place] [address] (four) Medical hours. Branch lactulose 2020-0 Yes Take by Unive rs 10 gram/15 8-16 mouth ity of mL solution 22:36: daily. [facility] 44 Medical Branch loratadine 2020-0 Yes 10mg Take 10 mg U nivers 10 mg 8-16 by mouth ity of tablet 22:36: daily. [place] [address] Medical Branch MAGNESIUM 2020-0 Yes Take by Unive rs HYDROXIDE 8-16 mouth. ity of (MILK OF 22:36: [place] MAGNESIA 44 Medical ORAL) Branch furosemide 2020-0 Yes 20mg Take 20 mg U nivers 20 mg 8-16 by mouth ity of tablet 22:36: every [place] [address] morning Medical and Branch evening. OMEGA-3 2020-0 Yes 1{capsu Take 1 Unive rs FATTY 8-16 le} capsule by ity of ACIDS/FISH 22:36: mouth [place] OIL (OMEGA 44 daily. Medical 3 FISH OIL Branch ORAL) Cholecalcif 2020-0 Yes 1{tbl} Take 1 Un tony vilma, 8-16 tablet by ity of Vitamin D3, 22:36: mouth [place] (VITAMIN 44 daily. Medical D3) 5,000 Branch unit tablet atorvastati 2020-0 Yes 10mg Take 10 mg Univers n 10 mg 8-16 by mouth ity of tablet 22:36: at [place] [address] bedtime. Medical Branch allopurinol 2020-0 Yes 100mg Take 100 U nivers 100 mg 8-16 mg by ity of tablet 22:36: mouth [place] [address] daily. Medical Branch furosemide 2020-0 Yes 20mg Take 20 mg U nivers 20 mg 8-16 by mouth ity of tablet 22:36: daily. [place] [address] Medical Branch losartan 50 2020-0 Yes 50mg Take 50 mg Univers mg tablet 8-16 by mouth ity of 22:36: daily. [place] [address] Medical Branch metFORMIN 2020-0 Yes 500mg Take 500 Uni vers 500 mg 8-16 mg by ity of tablet 22:36: mouth 2 [place] [address] (two) Medical times Branch daily with meals. simvastatin 2020-0 Yes 10mg Take 10 mg Univers 10 mg 8-16 by mouth ity of tablet 22:36: at [place] [address] bedtime. Medical Branch CALCIUM 2020-0 Yes 5000U Take 5,000 Uni vers CARBONATE/V 8-16 Units by ity of ITAMIN D3 22:36: mouth. [place] ([place] [address] Medical D-3 ORAL) Branch acetaminoph 2020-0 Yes Take by Uni vers en 325 mg 8-16 mouth ity of tablet 22:36: every 6 [place] [address] (six) Medical hours as Branch needed. diphenhydrA 2020-0 Yes 25mg Take 25 mg Univers MINE 8-16 by mouth ity of (BANOPHEN) 22:36: every 6 [facility] 25 mg 44 (six) Medical capsule hours as Branch needed for Allergies. bismuth 2020-0 Yes Take by Univers subsalicyla 8-16 mouth ity of te 22:36: every 6 [place] (BISMATROL) (six) Medical 262 mg/15 hours as Branch mL needed. suspension guaiFENesin 2020-0 Yes Take by Uni vers 100 mg/5 mL 8-16 mouth ity of solution 22:36: every 4 [place] [address] (four) Medical hours. Branch lactulose 2020-0 Yes Take by Unive rs 10 gram/15 8-16 mouth ity of mL solution 22:36: daily. [address] Branch loratadine 2020-0 Yes 10mg Take 10 mg U nivers 10 mg 8-16 by mouth ity of tablet 22:36: daily. [place] [address] Medical Branch MAGNESIUM 2020-0 Yes Take by Unive rs HYDROXIDE 8-16 mouth. ity of (MILK OF 22:36: [place] MAGNESIA 44 Medical ORAL) Branch furosemide 2020-0 Yes 20mg Take 20 mg U nivers 20 mg 8-16 by mouth ity of tablet 22:36: every [place] [address] morning Medical and Branch evening. OMEGA-3 2020-0 Yes 1{capsu Take 1 Unive rs FATTY 8-16 le} capsule by ity of ACIDS/FISH 22:36: mouth [place] OIL (OMEGA 44 daily. Medical 3 FISH OIL Branch ORAL) Cholecalcif 2020-0 Yes 1{tbl} Take 1 Un tony vilma, 8-16 tablet by ity of Vitamin D3, 22:36: mouth [place] (VITAMIN 44 daily. Medical D3) 5,000 Branch unit tablet atorvastati 2020-0 Yes 10mg Take 10 mg Univers n 10 mg 8-16 by mouth ity of tablet 22:36: at [place] [address] bedtime. Medical Branch allopurinol 2020-0 Yes 100mg Take 100 U nivers 100 mg 8-16 mg by ity of tablet 22:36: mouth [place] [address] daily. Medical Branch furosemide 2020-0 Yes 20mg Take 20 mg U nivers 20 mg 8-16 by mouth ity of tablet 22:36: daily. [place] [address] Medical Branch losartan 50 2020-0 Yes 50mg Take 50 mg Univers mg tablet 8-16 by mouth ity of 22:36: daily. [place] [address] Medical Branch metFORMIN 2020-0 Yes 500mg Take 500 Uni vers 500 mg 8-16 mg by ity of tablet 22:36: mouth 2 [place] [address] (two) Medical times Branch daily with meals. simvastatin 2020-0 Yes 10mg Take 10 mg Univers 10 mg 8-16 by mouth ity of tablet 22:36: at [place] [address] bedtime. Medical Branch CALCIUM 2020-0 Yes 5000U Take 5,000 Uni vers CARBONATE/V 8-16 Units by ity of ITAMIN D3 22:36: mouth. [place] (VITAMIN Medical D-3 ORAL) Branch acetaminoph 2020-0 Yes Take by Uni vers en 325 mg 8-16 mouth ity of tablet 22:36: every 6 [place] [address] (six) Medical hours as Branch needed. diphenhydrA 2020-0 Yes 25mg Take 25 mg [facility] MINE 8-16 by mouth ity of (BANOPHEN) 22:36: [facility] 6 [facility] (six) Medical capsule hours as Branch needed for Allergies. bismuth 2020-0 Yes Take by [facility] subsalicyla 8-16 mouth ity of te 22:36: every 6 [place] (BISMATROL) 44 (six) Medical 262 mg/15 hours as Branch mL needed. suspension guaiFENesin 2020-0 Yes Take by [facility] vers 100 mg/5 mL 8-16 mouth ity of solution 22:36: every 4 [place] 44 (four) Medical hours. Branch lactulose 2020-0 Yes Take by [facility] gram/15 8-16 mouth ity of mL solution 22:36: daily. [place] [address] Medical Branch loratadine 2020-0 Yes 10mg Take 10 mg U nivers 10 mg 8-16 by mouth ity of tablet 22:36: daily. [place] [address] Medical Branch MAGNESIUM 2020-0 Yes Take by [facility] rs HYDROXIDE 8-16 mouth. ity of (MILK OF 22:36: [place] MAGNESIA 44 Medical ORAL) Branch furosemide 2020-0 Yes 20mg Take 20 mg U nivers 20 mg 8-16 by mouth ity of tablet 22:36: every [place] [address] morning Medical and Branch evening. OMEGA-3 2020-0 Yes 1{capsu Take [address] [facility] rs FATTY - le} capsule by ity of ACIDS/FISH 22:36: mouth [place] OIL (OMEGA 44 daily. Medical 3 FISH OIL Branch ORAL) Cholecalcif 2020-0 Yes 1{tbl} Take 1 Un tony vilma, 8-16 tablet by ity of Vitamin D3, 22:36: mouth [place] (VITAMIN 44 daily. Medical D3) 5,000 Branch unit tablet methylPREDN 2020-0 Yes [id number] Take by [facility] ISolone 8-16 mouth ity of (MEDROL, 00:00: SEE-INSTRU [place] ERIC,) 4 mg 00 CTIONS. Medica l tablets follow Branch package directions methylPREDN 2020-0 Yes [id number] Take by [facility] ISolone 8-16 mouth ity of (MEDROL, 00:00: SEE-INSTRU [place] ERIC,) 4 mg 00 CTIONS. Medica l tablets follow Branch package directions methylPREDN 2020-0 Yes [id number] Take by [facility] ISolone 8-16 mouth ity of (MEDROL, 00:00: SEE-INSTRU [place] ERIC,) 4 mg 00 CTIONS. Medica l tablets follow Branch package directions methylPREDN 2020-0 Yes [id number] Take by [facility] ISolone 8-16 mouth ity of (MEDROL, 00:00: SEE-INSTRU [place] ERIC,) 4 mg 00 CTIONS. Medica l tablets follow Branch package directions methylPREDN 2020-0 Yes [id number] Take by [facility] ISolone 8-16 mouth ity of (MEDROL, 00:00: SEE-INSTRU [place] ERIC,) 4 mg 00 CTIONS. Medica l tablets follow Branch package directions methylPREDN 2020-0 Yes [id number] Take by [facility] ISolone 8-16 mouth ity of (MEDROL, 00:00: SEE-INSTRU [place] ERIC,) 4 mg 00 CTIONS. Medica l tablets follow Branch package directions methylPREDN 2020-0 Yes [id number] Take by [facility] ISolone 8-16 mouth ity of (MEDROL, 00:00: SEE-INSTRU [place] ERIC,) 4 mg 00 CTIONS. Medica l tablets follow Branch package directions methylPREDN 2020-0 Yes [id number] Take by [facility] ISolone 8-16 mouth ity of (MEDROL, 00:00: SEE-INSTRU [place] ERIC,) 4 mg 00 CTIONS. Medica l tablets follow Branch package directions methylPREDN 2020-0 Yes [id number] Take by [facility] ISolone 8-16 mouth ity of (MEDROL, 00:00: SEE-INSTRU [place] ERIC,) 4 mg 00 CTIONS. Medica l tablets follow Branch package directions methylPREDN 2020-0 Yes [id number] Take by [facility] ISolone 8-16 mouth ity of (MEDROL, 00:00: SEE-INSTRU [place] ERIC,) 4 mg 00 CTIONS. Medica l tablets follow Branch package directions methylPREDN 2020-0 Yes [id number] Take by [facility] ISolone 8-16 mouth ity of (MEDROL, 00:00: SEE-INSTRU [place] ERIC,) 4 mg 00 CTIONS. Medica l tablets follow Branch package directions methylPREDN 2020-0 Yes [id number] Take by [facility] ISolone 8-16 mouth ity of (MEDROL, 00:00: SEE-INSTRU [place] ERIC,) 4 mg 00 CTIONS. Medica l tablets follow Branch package directions codeine-gua 2018-0 Yes 10mL Take 10 mL Univers ifenesin 1-26 by mouth ity of 10-100 mg/5 00:00: every 6 [place] as mL solution 00 (six) Medical hours as Branch needed for Cough. codeine-gua 2018-0 Yes 10mL Take 10 mL Univers ifenesin 1-26 by mouth ity of 10-100 mg/5 00:00: every 6 [place] as mL solution 00 (six) Medical hours as Branch needed for Cough. codeine-gua 2018-0 Yes 10mL Take 10 mL Univers ifenesin 1-26 by mouth ity of 10-100 mg/5 00:00: every 6 [place] as mL solution 00 (six) Medical hours as Branch needed for Cough. codeine-gua 2018-0 Yes 10mL Take 10 mL Univers ifenesin 1-26 by mouth ity of 10-100 mg/5 00:00: every 6 [place] as mL solution 00 (six) Medical hours as Branch needed for Cough. codeine-gua 2018-0 Yes 10mL Take 10 mL Univers ifenesin 1-26 by mouth ity of 10-100 mg/5 00:00: every 6 [place] as mL solution 00 (six) Medical hours as Branch needed for Cough. codeine-gua 2018-0 Yes 10mL Take 10 mL Univers ifenesin 1-26 by mouth ity of 10-100 mg/5 00:00: every 6 [place] as mL solution 00 (six) Medical hours as Branch needed for Cough. codeine-gua 2018-0 Yes 10mL Take 10 mL Univers ifenesin 1-26 by mouth ity of 10-100 mg/5 00:00: every 6 [place] as mL solution 00 (six) Medical hours as Branch needed for Cough. codeine-gua 2018-0 Yes 10mL Take 10 mL Univers ifenesin 1-26 by mouth ity of 10-100 mg/5 00:00: every 6 [place] as mL solution 00 (six) Medical hours as Branch needed for Cough. codeine-gua 2018-0 Yes 10mL Take 10 mL Univers ifenesin 1-26 by mouth ity of 10-100 mg/5 00:00: every 6 [place] as mL solution 00 (six) Medical hours as Branch needed for Cough. codeine-gua 2018-0 Yes 10mL Take 10 mL Univers ifenesin 1-26 by mouth ity of 10-100 mg/5 00:00: every 6 [place] as mL solution 00 (six) Medical hours as Branch needed for Cough. codeine-gua 2018-0 Yes 10mL Take 10 mL Univers ifenesin 1-26 by mouth ity of 10-100 mg/5 00:00: every 6 [place] as mL solution 00 (six) Medical hours as Branch needed for Cough. codeine-gua 2018-0 Yes 10mL Take 10 mL Univers ifenesin 1-26 by mouth ity of 10-100 mg/5 00:00: every 6 [place] as mL solution 00 (six) Medical hours as Branch needed for Cough. INDOMETHACI 2018-0 Yes 25mg Take 1 Univ ers N 25 mg 1-13 capsule by ity of capsule 00:00: mouth 3 [place] 00 (three) Medical times Branch daily with meals. TYLENOL-COD 2018-0 Yes 2{tbl} Take 2 Un tony EINE #3 1-13 tablets by ity of 300-30 mg 00:00: mouth [place] tablet 00 every 4 Medical (four) Branch hours as needed for Pain (scale 1-3). INDOMETHACI 2018-0 Yes 25mg Take 1 Univ ers N 25 mg 1-13 capsule by ity of capsule 00:00: mouth 3 [place] 00 (three) Medical times Branch daily with meals. TYLENOL-COD 2018-0 Yes 2{tbl} Take 2 Un tony EINE #3 1-13 tablets by ity of 300-30 mg 00:00: mouth [place] tablet 00 every 4 Medical (four) Branch hours as needed for Pain (scale 1-3). INDOMETHACI 2018-0 Yes 25mg Take 1 Univ ers N 25 mg 1-13 capsule by ity of capsule 00:00: mouth 3 [place] 00 (three) Medical times Branch daily with meals. TYLENOL-COD 2018-0 Yes 2{tbl} Take 2 Un tony EINE #3 1-13 tablets by ity of 300-30 mg 00:00: mouth [place] tablet 00 every 4 Medical (four) Branch hours as needed for Pain (scale 1-3). INDOMETHACI 2018-0 Yes 25mg Take 1 Univ ers N 25 mg 1-13 capsule by ity of capsule 00:00: mouth 3 [place] 00 (three) Medical times Branch daily with meals. TYLENOL-COD 2018-0 Yes 2{tbl} Take 2 Un tony EINE #3 1-13 tablets by ity of 300-30 mg 00:00: mouth [place] tablet 00 every 4 Medical (four) Branch hours as needed for Pain (scale 1-3). INDOMETHACI 2018-0 Yes 25mg Take 1 Univ ers N 25 mg 1-13 capsule by ity of capsule 00:00: mouth 3 [place] 00 (three) Medical times Branch daily with meals. TYLENOL-COD 2018-0 Yes 2{tbl} Take 2 Un tony EINE #3 1-13 tablets by ity of 300-30 mg 00:00: mouth [place] tablet 00 every 4 Medical (four) Branch hours as needed for Pain (scale 1-3). INDOMETHACI 2018-0 Yes 25mg Take 1 Univ ers N 25 mg 1-13 capsule by ity of capsule 00:00: mouth 3 [place] 00 (three) Medical times Branch daily with meals. TYLENOL-COD 2018-0 Yes 2{tbl} Take 2 Un tony EINE #3 1-13 tablets by ity of 300-30 mg 00:00: mouth [place] tablet 00 every 4 Medical (four) Branch hours as needed for Pain (scale 1-3). INDOMETHACI 2018-0 Yes 25mg Take 1 Univ ers N 25 mg 1-13 capsule by ity of capsule 00:00: mouth 3 [place] 00 (three) Medical times Branch daily with meals. TYLENOL-COD 2018-0 Yes 2{tbl} Take 2 Un tony EINE #3 1-13 tablets by ity of 300-30 mg 00:00: mouth [place] tablet 00 every 4 Medical (four) Branch hours as needed for Pain (scale 1-3). INDOMETHACI 2018-0 Yes 25mg Take 1 Univ ers N 25 mg 1-13 capsule by ity of capsule 00:00: mouth 3 [place] 00 (three) Medical times Branch daily with meals. TYLENOL-COD 2018-0 Yes 2{tbl} Take 2 Un tony EINE #3 1-13 tablets by ity of 300-30 mg 00:00: mouth [place] tablet 00 every 4 Medical (four) Branch hours as needed for Pain (scale 1-3). INDOMETHACI 2018-0 Yes 25mg Take 1 Univ ers N 25 mg 1-13 capsule by ity of capsule 00:00: mouth 3 [place] 00 (three) Medical times Branch daily with meals. TYLENOL-COD 2018-0 Yes 2{tbl} Take 2 Un tony EINE #3 1-13 tablets by ity of 300-30 mg 00:00: mouth [place] tablet 00 every 4 Medical (four) Branch hours as needed for Pain (scale 1-3). INDOMETHACI 2018-0 Yes 25mg Take 1 Univ ers N 25 mg 1-13 capsule by ity of capsule 00:00: mouth 3 [place] 00 (three) Medical times Branch daily with meals. TYLENOL-COD 2018-0 Yes 2{tbl} Take 2 Un tony EINE #3 1-13 tablets by ity of 300-30 mg 00:00: mouth [place] tablet 00 every 4 Medical (four) Branch hours as needed for Pain (scale 1-3). INDOMETHACI 2018-0 Yes 25mg Take 1 Univ ers N 25 mg 1-13 capsule by ity of capsule 00:00: mouth 3 [place] 00 (three) Medical times Branch daily with meals. TYLENOL-COD 2018-0 Yes 2{tbl} Take 2 Un tony EINE #3 1-13 tablets by ity of 300-30 mg 00:00: mouth [place] tablet 00 every 4 Medical (four) Branch hours as needed for Pain (scale 1-3). INDOMETHACI 2018-0 Yes 25mg Take 1 Univ ers N 25 mg 1-13 capsule by ity of capsule 00:00: mouth 3 [place] 00 (three) Medical times Branch daily with meals. TYLENOL-COD 2018-0 Yes 2{tbl} Take 2 Un tony EINE #3 1-13 tablets by ity of 300-30 mg 00:00: mouth [place] tablet 00 every 4 Medical (four) Branch hours as needed for Pain (scale 1-3). Vital Signs Vital Name Observation Time Observation Value Comments Source Systolic blood 2022-05-21 15:22:00 130 mm[Hg] [facility] Diastolic blood 2022-05-21 15:22:00 83 mm[Hg] [facility] Heart rate 2022-05-21 15:22:00 89 /min [facility] Body temperature 2022-05-21 15:22:00 37.11 Danuta [facility] Respiratory rate 2022-05-21 15:22:00 18 /min [facility] Body height 2022-05-21 15:22:00 157.5 cm [facility] Body weight 2022-05-21 15:22:00 54.432 kg [facility] BMI 2022-05-21 15:22:00 21.95 kg/m2 [facility] Oxygen saturation 2022-05-21 15:22:00 99 /min Uni vers[facility] of in Arterial blood [place] [facility] by Pulse oximetry Branch Systolic blood 2022-03-07 19:20:00 129 mm[Hg] [facility] [place] [facility] Diastolic blood 2022-03-07 19:20:00 89 mm[Hg] [facility] [place] [facility] Heart rate 2022-03-07 19:20:00 103 /min [facility] Respiratory rate 2022-03-07 19:20:00 13 /min [facility] [place] [facility] Oxygen saturation 2022-03-07 19:15:00 99 /min Uni versity of in Arterial blood [place] [facility] Pulse oximetry Branch Body temperature 2022-03-07 18:52:00 36.39 Danuta [facility] [place] [facility] Body height 2022-03-07 17:41:00 157.5 cm [facility] Body weight 2022-03-07 17:41:00 54.522 kg On a scale [facility] BMI 2022-03-07 17:41:00 21.98 kg/m2 [facility] Systolic blood 2022-03-07 18:54:00 104 mm[Hg] [facility] [place] [facility] Diastolic blood 2022-03-07 18:54:00 68 mm[Hg] [facility] Heart rate 2022-03-07 18:54:00 58 /min [facility] Respiratory rate 2022-03-07 18:54:00 15 /min [facility] Oxygen saturation 2022-03-07 18:54:00 100 /min Uni versity of in Arterial blood [place] [facility] by Pulse oximetry Branch Body temperature 2022-03-07 18:52:00 36.39 Danuta [facility] [place] [facility] Body height 2022-03-07 17:41:00 157.5 cm [facility] Body weight 2022-03-07 17:41:00 54.522 kg On a scale [facility] BMI 2022-03-07 17:41:00 21.98 kg/m2 [facility] Procedures Procedure Date / Time Performing Source Performed Clinician CONSENT/REFUSAL FOR DIAGNOSIS 2023-01-01 Doctor Unassigned, [facility] AND TREATMENT 15:13:14 [facility] CBC WITH DIFF 2022-08-27 [facility] xa 15:34:00 Medical Branch PHYSICIAN ORDERS 2022-08-27 Doctor Unassigned, [facility] 05:01:00 [place] [facility] XR FEMUR 2 VW RIGHT 2022-05-[address] [facility] 17:06:12 Medical Branch XR HIPS 2 VW RIGHT 2022-05-[address] [facility] 17:06:12 Medical Branch XR PELVIS <3 VW 2022-05-[address] [facility] 17:06:12 [facility] URIC ACID 2022-05-[address] [facility] 16:20:00 [facility] BASIC METABOLIC PANEL (NA, K, 2022-05-[address] [facility] CL, CO2, GLUCOSE, BUN, 16:20:00 [facility] ran CREATININE, CA) CBC WITH DIFF 2022-05-[address] [facility] 16:20:00 [facility] CONSENT/REFUSAL FOR DIAGNOSIS 2022-05-21 Doctor Unassigned, [facility] AND TREATMENT 15:14:39 [facility] PHACOEMULSIFICATION OF 2022-03-07 Nader Lobato [facility] CATARACT WITH INTRAOCULAR 18:01:00 Hans Trivedi l Niko LENS IMPLANT POCT GLUCOSE (AUTOMATED) 2022-03-07 Nader Lobato [facility] 17:01:00 Hans [facility] POCT GLUCOSE (AUTOMATED) 2022-03-07 Nader Lobato [facility] 17:01:00 [facility] PATIENT QUESTIONNAIRE 2022-03-07 Doctor Unassigned, [facility] 06:01:00 [facility] ASSIGNMENT OF BENEFITS 2022-02-26 [facility] 16[facility]59[facility]41 [place] [facility] Encounters Start End Encounter Admission Attending Care Care Encounter Source Date/Time Date/Time Type Type Clinicians Facility Department ID 2023-01-01 2023-01-01 Non Destructive Testing Scientist Enzo, Adc Lab Main [facility] 1.2.8 40.114 [id number] Univers 10:30:00 10:45:00 Visit Nader Johnson NELLY 350.1.13.10 [place] [phone] [address] 2023-01-01 2023-01-01 [facility] [id number] Univers 10:30:00 10:30:00 NADER sibley [facility] 2023-01-01 2023-01-01 Orders Doctor HERNANDEZ 1.2.840.114 [id number] Univers 00:00:00 00:00:00 Only Unassigned, SURESH 350.1.13.10 ity of [facility] 4.2.7.2.686 [place] [phone] [address] 2022-08-27 2022-08-27 Non Destructive Testing Scientist Enzo, Adc Lab Main [facility] 1.2.8 40.114 [id number] Univers 10:15:00 10:30:00 Visit Alex Nader VILLEGAS 350.1.13.10 [place] [id number] [address] 2022-08-27 2022-08-27 [facility] [id number] Univers 10:15:00 10:15:00 NADER sibley [facility] 2022-08-27 2022-08-27 Orders Doctor DAVID 1Hal2.840.114 [id number] Univers 00:00:00 00:00:00 Only Unassigned, SURESH 350.1.13.10 ity of [facility] 4.2.7.2.686 [place] [phone] [address] 2022-05-21 2022-05-21 Emergency X JORDANA, [facility] ERT [id number] Univers 09:26:00 15:55:00 MAGALIS ity of [facility] 2022-05-21 2022-05-21 Emergency [facility] 1.2.840.114 1 [id number] Univers 09:26:00 15:55:00 Magalis [place] 350.1.13.10 i [place] [id number] [facility] 084 Exline 2022-05-21 2022-05-21 Orders Doctor DAVID 1.2.840.114 [id number] Univers 00:00:00 00:00:00 Only Unassigned, SURESH 350.1.13.10 ity of [facility] 4.2.7.2.686 [place] [phone] [address] 2022-03-07 2022-03-07 Outpatient R [facility] [id number] Univers 10:50:00 13:35:00 NADER ity [facility] 2022-03-07 2022-03-07 [facility] 1.2.840.114 [id number] Univers 10:50:00 13:35:00 Encounter Nader DIAZSHEBA 350.1.13.10 ity of [place]ICAL [id number] [facility] 071 Exline 2022-03-07 2022-03-07 Surgery [facility] 1.2.840.114 [id number] Univers 12:16:00 12:54:00 Nader NELLY 350.1.13.10 i ty [place] [id number] [facility] 020 Branch 2022-03-07 2022-03-07 Orders Doctor HERNANDEZ 1.2.840.114 [id number] Univers 00:00:00 00:00:00 Only Unassigned, SURESH 350.1.13.10 ity of [facility] 4.2.7.2.686 [place] [phone] [facility] 009 Branch 2022-02-26 2022-02-26 Non Destructive Testing Scientist Enzo, Adc Lab Main [facility] 1.2.8 40.114 [id number] Univers 10:45:00 11:00:00 Visit Nader Lobato 350.1.1 3.10 [place] [id number] [address] 2022-02-26 2022-02-26 Outpatient R CHERYLE, [facility] [id number] Univers 10:45:00 10:45:00 NADER sibley [facility] 2022-02-26 2022-02-26 Orders Doctor DAVID 1.2.840.114 [id number] Univers 00:00:00 00:00:00 Only Unassigned, SURESH 350.1.13.10 ity of [facility] 4.2.7.2.686 [place] [phone] [address] 2021-10-31 2021-10-31 Non Destructive Testing Scientist Enzo, Adc Lab Main [facility] 1.2.8 40.114 [id number] Univers 11:45:00 12:00:00 Visit Nader Johnson 350.1.13.10 [place] [id number] [address] 2021-10-31 2021-10-31 Outpatient R ALEX, [facility] [id number] Univers 11:45:00 11:45:00 NADER sibley [facility] 2021-10-31 2021-10-31 Outpatient R ALEX, [facility] [id number] Univers 11:45:00 11:45:00 NADER sibley [facility] 2021-10-31 2021-10-31 Orders Doctor HERNANDEZ 1.2.840.114 [id number] Univers 00:00:00 00:00:00 Only Unassigned, SURESH 350.1.13.10 ity of [facility] 4.2.7.2.686 [place] [phone] [address] 2021-07-11 2021-07-11 Non Destructive Testing Scientist Enzo, Adc Lab Main [facility] 1.2.8 40.114 [id number] Univers 11:15:00 11:30:00 Visit Nader Johnson 350.1.13.10 [place] [phone] [address] 2021-07-11 2021-07-11 Outpatient R ALEX, [facility] [id number] Univers 11:15:00 11:15:00 NADER ity [facility] 2021-07-11 2021-07-11 Orders Doctor DAVID 1.2.840.114 [id number] Univers 00:00:00 00:00:00 Only Unassigned, SURESH 350.1.13.10 ity of [facility] 4.2.7.2.686 [place] [phone] [address] 2020-06-29 2020-06-29 Non Destructive Testing Scientist Enzo, Adc Lab Main [facility] 1.2.8 40.114 [id number] Univers 08:43:12 08:58:12 Visit Monica Wayne 350.1.13.10 [place] [phone] [address] 2020-06-29 2020-06-29 [facility] [id number] Univers 08:45:00 08:45:00 MONICA [facility] 2020-06-29 2020-06-29 Orders Doctor DAVID 1.2.840.114 [id number] Univers 00:00:00 00:00:00 Only Unassigned, SURESH 350.1.13.10 ity of [facility] 4.2.7.2.686 [place] [id number] [address] 2020-02-09 2020-02-09 Non Destructive Testing Scientist Enzo, Adc Lab Main [facility] 1.2.8 40.114 [id number] Univers 09:20:13 09:35:13 Visit Zi White 350.1.13.10 [place] [id number] [address] 2020-02-09 2020-02-09 Outpatient R [facility] [id number] Univers 09:00:00 09:00:00 ity of [facility] 2020-02-09 2020-02-09 Orders Doctor DAVID 1.2.840.114 [id number] Univers 00:00:00 00:00:00 Only Unassigned, SURESH 350.1.13.10 ity of [facility] 4.2.7.2.686 [place] [phone] [facility] 009 Exline 2019-12-17 2019-12-17 Orders Doctor DAVID 1.2.840.114 [id number] Univers 00:00:00 00:00:00 Only Unassigned, SURESH 350.1.13.10 ity of [facility] 4.2.7.2.686 [place] [id number] [facility] 009 Exline 2019-12-07 2019-12-07 Transition Irene Gaffney 1.2.840.114 [id number] Univers 00:00:00 00:00:00 of Care Marialuisa Saldaña 350.1.13.10 it [place] of [place] [phone] [facility] 403 Branch 2019-12-04 2019-12-05 Emergency NimajuanjoseYusra 1.2.840 .114 [id number] Univers 15:38:00 21:45:00 Lorri Ford 350.1.13.10 ity of [facility] 4.2.7.2.686 [place] [id number] [facility] 098 Exline 2019-12-04 2019-12-04 Emergency X Lorri FORD [facility] ERT [id number] Univers 15:38:00 15:38:00 ity of [facility] Results Test Description Test Time Test Comments Results Result Comments Source CBC WITH DIFF 2022-05-21 16:51:06 Test Item Value Reference Range Interpretation Comme nts WBC (test code = 6690-2) 5.39 See_Comment [A utomated message] The system which ge nerated this result transmit bina reference range: 4.20 - 1 0.70 10*3/?L. The reference r hu was not used to interpr et this result as normal/abnor mal. RBC (test code = 789-8) 4.16 See_Comment L [Au tomated message] The system which [employer] nerated this result transmit bina reference range: 4.26 - 5 .52 10*6/?L. The reference r hu was not used to interpr et this result as normal/abnor mal. HGB (test code = 718-7) 13.9 g/dL 12.2-16.4 HCT (test code = 4544-3) 41.5 % 38.4-49.3 MCV (test code = 787-2) 99.8 fL 81.7-95.6 H MCH (test code = 785-6) 33.4 pg 26.1-32.7 H MCHC (test code = 786-4) 33.5 g/dL 31.2-35.0 RDW-SD (test code = 15566-9) 54.8 fL 38.5-51.6 H RDW-CV (test code = 788-0) 15.0 % 12.1-15.4 PLT (test code = 777-3) 182 See_Comment [Au tomated message] The system which [employer] nerated this result transmit bina reference range: 150 - 32 8 10*3/?L. The reference range was not used to interpret th is result as normal/abnormal . MPV (test code = 33930-4) 10.2 fL 9.8-13.0 NRBC/100 WBC (test code = 0.0 See_Comment [ Automated message] The 0819410626) system which [employer] nerated this result transmit bina reference range: 0.0 - 10 .0 /100 WBCs. The reference r hu was not used to interpr et this result as normal/abnor mal. NRBC x10^3 (test code = See_Comment [Au tomated message] The 5654371423) system which [employer] nerated this result transmit bina reference range: 10*3/?L. The reference range was not u sed to interpret this result as normal/abnormal . GRAN MAT (NEUT) % (test code 57.5 % = 770-8) IMM GRAN % (test code = 0.40 % 6874907044) LYMPH % (test code = 736-9) 29.3 % MONO % (test code = 5905-5) 11.3 % EOS % (test code = 713-8) 0.6 % BASO % (test code = 706-2) 0.9 % GRAN MAT x10^3(ANC) (test 3.10 10*3/uL 1.99-6.95 code = 6522225186) IMM GRAN x10^3 (test code = 0.00-0.06 5355132916) LYMPH x10^3 (test code = 1.58 10*3/uL 1.09-3.23 731-0) MONO x10^3 (test code = 0.61 10*3/uL 0.36-1.02 742-7) EOS x10^3 (test code = 0.03 10*3/uL 0.06-0.53 L 711-2) BASO x10^3 (test code = 0.05 10*3/uL 0.01-0.09 704-7) Lab Interpretation (test Abnormal code = 71518-8) [facility] METABOLIC PANEL (NA, K, CL, CO2, GLUCOSE, BUN, CREATININE, CA)2022-05-21 16:50:45 Test Item Value Reference Range Interpretation Comments NA (test code = 144 mmol/L 135-145 9155127310) K (test code = 3.9 mmol/L 3.5-5.0 2249923231) CL (test code = 103 mmol/L 98-108 5687692598) CO2 TOTAL (test code = 35 mmol/L 23-31 H 4637606946) AGAP (test code = 6 2-16 1243201551) BUN (test code = 14 mg/dL 7-23 3180004227) GLUCOSE (test code = 85 mg/dL 70-110 4598157165) CREATININE (test code = 1.00 mg/dL 0.60-1.25 2529879503) CALCIUM (test code = 8.3 mg/dL 8.6-10.6 L 5283244787) eGFR (test code = 76.7 mL/min/1.73m2 9896833313) YON (test code = YON) Association of Glomerular Filtration Rate (GFR) and Staging of Kidney Disease* + --+ --+ ------+| GFR (mL/min/1.73 m2) ?| With Kidney Damage ?| ?Without Kidney Damage+ --------+ --------+ +| ?>90 ?| ?Stage one ?| ? Normal ?+ ---+ ---+ -------+| ?60-89 ?| ?Stage two ?| ? Decreased GFR ? + --+ --+ ------+| ?30-59 ?| ?Stage three ?| ? Stage three ? + --+ --+ ------+| ?15-29 ?| ?Stage four ? | ? Stage four ?+ ---+ ---+ -------+| ?<15 (or dialysis) ? ?| ?Stage five ? | ? Stage five ?+ ---+ ---+ -------+ *Each stage assumes the associated GFR level has been in effect for at least three months. ?Stages 1 to 5, with or without kidney disease, indicate chronic kidney disease. Notes: Determination of stages one and two (with eGFR >59mL/min/1.73 m2) requires estimation of kidney damage for at least three months as defined by structural or functional abnormalities of the kidney, manifested by either:Pathological abnormalities or Markers of kidney damage (including abnormalities in the composition of the blood or urine or abnormalities in imaging tests). Lab Interpretation Abnormal (test code = 36455-3) [id number] 16:50:45 Test Item Value Reference Range Interpretation Comments URIC ACID (test code = 3921655161) 4.8 mg/dL 3.6-8.0 Lab Interpretation (test code = Normal 02817-7) [facility] GLUCOSE (AUTOMATED)2022-03-07 17:32:34 Test Item Value Reference Range Interpretation Comments POCT GLU (test code = 6809343749) 71 mg/dL 70-110 Lab Interpretation (test code = Normal 49881-1) [facility] GLUCOSE (AUTOMATED)2022-03-07 17:32:34 Test Item Value Reference Range Interpretation Comments POCT GLU (test code = 3600160730) 71 mg/dL 70-110 Lab Interpretation (test code = Normal 01045-3) [facility] Notes Date/Time Note Provider Source 2023-01-01 10:30:00 [id number]:30:00Formatting of this note [employer] is different from the original.Images from the original note were not included.Venipuncture collection performed by clean technique on the left anticubitus. Total of 1 attempts were made. Slight pressure and a bandage/dressing were applied to the site(s). The patient experienced no complications. The following specimens were processed according to instructions and sent to [facility] laboratories per lab order on 01/01/2023: LT BLUE SST 1 RED LAV 2 PPT DK GREEN (LiHep) DK GREEN (SodH) JOYA DK BLUE (K2) DK BLUE (S) ACD Blood Culture NIPT/NTD [id number] [id number]:55:31Nurse NoteTXT1.2.840.961203.1.13.104.2.7.2.34434 9|[id number] for patient zkkt29162-5Dujki NoteLNUT[address] Ab[id number] VVHOMOQCTNXOSVWK6451-99-72U26:55:311.2.840 .657340.1.72.3.15|1.2.840.835625.1.13.104. [id number]"
[2023-03-14] MEDS ORDERED: NA CHLORIDE 0.9% 500 ML ONE (00:19)
[2023-03-14 00:36] LABS: Potassium 3.1 mEq/L (3.5-5.1)
[2023-03-14] MEDS ORDERED: MAGNESIUM SULFATE 1 gm IVPB 1 GM/100 ML BAG IV ONE (01:49)
[2023-03-14] MEDS ORDERED: KCL 20 MEQ/100 mL IVPB 100 ML IV ONE (01:54)
--- NOTE | 2023-03-14 05:19 | ER ---
Nurse's Notes [facility] Name: Jose Vera Age: 57 yrs Sex: Male : 1965 Arrival Date: 03/13/2023 Time: 23:41 Bed 20 Private MD: Diagnosis: Adverse effect of other drugs, medicaments and biological substances, initial encounter Presentation: 03/13 23:48 Chief complaint: Parent and/or Guardian states: Brother C/O patient having drowsiness pf1 with unsteady gait, was accidentally given Seroquel 300mg at 1 hour ago. Sister in law stated another persons medication was put in patient's medication box and did not realize it until after medicating the patient. 23:48 Coronavirus screen: Vaccine status: Patient reports receiving the 2nd dose of the covid pf1 vaccine. Client denies travel out of the [place] in the last 14 days. At this time, the client does not indicate any symptoms associated with coronavirus-19. Ebola Screen: Patient negative for fever greater than or equal to 101.5 degrees Fahrenheit, and additional compatible Ebola Virus Disease symptoms. Initial Sepsis Screen: Does the patient meet any 2 criteria? No. Patient's initial sepsis screen is negative. Does the patient have a suspected source of infection? No. Patient's initial sepsis screen is negative. Risk Assessment: Do you want to hurt yourself or someone else? Patient reports no desire to harm self or others. 23:48 Method Of Arrival: Wheelchair pf1 23:48 Acuity: JERMAINE 3 pf1 03/14 02:18 Onset of symptoms was March 14, 2023. rv Historical: - Allergies: 00:07 No Known Allergies; pf1 - PMHx: 00:08 Hypertensive disorder; Diabetes mellitus; gout; Hypercholesterolemia; acid reflux; pf1 - PSHx: 00:07 Tonsillectomy; cataracts; pf1 - Immunization history:: Adult Immunizations unknown, Client reports receiving the 2nd dose of the Covid vaccine, Last tetanus immunization: unknown, Flu vaccine status is unknown. - Social history:: Smoking status: Patient denies any tobacco usage or history of. Patient/guardian denies using alcohol, street drugs. - Family history:: not pertinent. - Hospitalizations: : No recent hospitalization is reported. Screenin:16 [place] ED Fall Risk Assessment (Adult) History of falling in the last 3 months, rv including since admission No falls in past 3 months (0 pts). Abuse screen: Denies threats or abuse. Denies injuries from another. Nutritional screening: No deficits noted. Tuberculosis screening: No symptoms or risk factors identified. Assessment: 00:16 General: Appears comfortable, Behavior is drowsy. Pain: Denies pain. Neuro: Level of rv Consciousness is lethargic. Cardiovascular: Capillary refill < 3 seconds Patient's skin is warm and dry. Respiratory: Airway is patent Respiratory effort is even, unlabored. Derm: Skin is intact. Overdose: 02:17 [place] Suicide Severity Screening: "In the past month, have you wished you were rv or wished you could go to sleep and not wake up?" Patient responds "yes." Based off client's responses, additional C-SSRS screening questions required. "In the past month, have you actually had any thoughts of killing yourself?" Patient responds "no." "In your lifetime, have you ever done anything, started to do anything, or prepared to do anything to end your life?" Patient responds "no.". 02:18 [place] Suicide Severity Screening: "In the past month, have you actually had any rv thoughts of killing yourself?" Patient responds "yes." Based off client's responses, additional C-SSRS screening questions required. Vital Signs: 03/13 23:48 BP 124 / 73; Pulse 70; Resp 18; Pulse Ox 95% on R/A; Weight 62.6 kg; Height 5 ft. 0 in. pf1 ; 03/14 00:21 Temp 96.3(A); kmf 02:15 BP 121 / 73; Pulse 64; Resp 16; Pulse Ox 97% on R/A; rv 03:00 BP 120 / 76; Pulse 61; Resp 16; Pulse Ox 97% on R/A; rv 04:00 BP 127 / 74; Pulse 73; Resp 17; Pulse Ox 97% on R/A; rv 05:00 BP 120 / 71; Pulse 63; Resp 16; Pulse Ox 98% on R/A; rv 03/13 23:48 Body Mass Index 26.95 (62.60 kg, 152.4 cm) pf1 ED Course: 03/13 23:43 Patient arrived in ED. jj6 23:47 Jerrod Patel MD is Attending Physician. rn 03/14 00:07 Triage completed. pf1 00:16 Patient has correct armband on for positive identification. Client placed on continuous rv cardiac and pulse oximetry monitoring. NIBP monitoring applied. 00:16 No provider procedures requiring assistance completed. Inserted saline lock: 20 gauge rv in left antecubital area, using aseptic technique. Blood collected. 02:14 Maurilio Goetz RN is Primary Nurse. rv 02:18 Arm band placed on right wrist. rv 05:56 IV discontinued, intact, bleeding controlled, No redness/swelling at site. Pressure rv dressing applied. Administered Medications: 00:12 Drug: NS 0.9% IV 500 ml IV at bolus once Route: IV; Rate: bolus; Site: left antecubital;rv 01:45 Follow up: IV Status: Completed infusion; IV Intake: 500ml rv 01:30 Drug: Magnesium Sulfate IVPB 1 grams IVPB once over 1 hrs Route: IVPB; Infused Over: 1 rv hrs; Site: left antecubital; 05:54 Follow up: Response: No adverse reaction; IV Status: Completed infusion; IV Intake: rv 100ml 02:01 Drug: Potassium Chloride IV 10 mEq IV at calculated rate once; administer over 1-2 rv hours Route: IV; Rate: calculated rate; Site: left antecubital; Medication: 00:16 VIS not applicable for this client. rv Intake: 01:45 IV: 500ml; Total: 500ml. rv 05:54 IV: 100ml; Total: 600ml. rv Outcome: 05:18 Discharge ordered by MD. rn 05:54 Discharged to home via wheelchair, with family, rv 05:54 Condition: good 05:54 Discharge instructions given to family, Instructed on discharge instructions, follow up and referral plans. Demonstrated understanding of instructions, follow-up care, 05:56 Patient left the ED. rv Signatures: Jerrod Patel MD MD rn Vicente, Ronaldo RN RN rv Fifi MorsejStefani Cheung RN RN pf1 Wendy [facility]
--- NOTE | 2023-03-14 05:19 | EDPHYS ---
Physician Documentation [facility] Name: Jose Vera Age: 57 yrs Sex: Male : 1965 Arrival Date: 03/13/2023 Time: 23:41 Bed 20 Private MD: ED Physician Jerrod Patel HPI: 03/14 00:40 This 57 yrs old Black Male presents to ER via Wheelchair with complaints of Accidental rn Overdose. 00:40 The patient presents to the emergency department with a possible overdose. Context: rn Method: the patient has a confirmed or suspected ingestion, Time: 2 hour(s) ago, Extent: the OD/poisoning occurred at at home, and was witnessed by family. Associated signs and symptoms: Pertinent negatives: anxiety, apnea, auditory hallucinations, loss of consciousness, palpitations, shortness of breath, visual hallucinations. Severity of symptoms: At their worst the symptoms were mild in the emergency department the symptoms are unchanged. The patient has not experienced similar symptoms in the past. Family reports they were giving him his medication about an hour prior to arrival and noticed that they gave him a 300 mg Seroquel that was not his. They noted somebody else's Seroquel was in his prescription box and family accidentally administered to patient. Patient is sleepy but arousable and talking. Patient does not have any chronic respiratory problems. Family called poison control and told to come in for evaluation.. Historical: - Allergies: 00:07 No Known Allergies; pf1 - PMHx: 00:08 Hypertensive disorder; Diabetes mellitus; gout; Hypercholesterolemia; acid reflux; pf1 - PSHx: 00:07 Tonsillectomy; cataracts; pf1 - Immunization history:: Adult Immunizations unknown, Client reports receiving the 2nd dose of the Covid vaccine, Last tetanus immunization: unknown, Flu vaccine status is unknown. - Social history:: Smoking status: Patient denies any tobacco usage or history of. Patient/guardian denies using alcohol, street drugs. - Family history:: not pertinent. - Hospitalizations: : No recent hospitalization is reported. ROS: 00:40 Constitutional: Negative for fever, chills, and weight loss, Cardiovascular: Negative rn for chest pain, palpitations, and edema, Respiratory: Negative for shortness of breath, cough, wheezing, and pleuritic chest pain, Abdomen/GI: Negative for abdominal pain, nausea, vomiting, diarrhea, and constipation, Neuro: Negative for headache, weakness, numbness, tingling, and seizure, Exam: 00:40 Constitutional: This is a well developed, well nourished patient who is awake, alert, rn drowsy but answering questions and able to get into bed with minimal assistance Head/Face: Normocephalic, atraumatic. ENT: Dry mucous membranes, no stridor Cardiovascular: Regular rate and rhythm. No pulse deficits. Respiratory: No increased work of breathing, no retractions or nasal flaring. Abdomen/GI: Soft, non-tender MS/ Extremity: Pulses equal, no cyanosis. Neuro: Awake, drowsy but answering questions and moving all 4 extremities 02:09 ECG was reviewed by the Attending Physician. rn Vital Signs: 03/13 23:48 BP 124 / 73; Pulse 70; Resp 18; Pulse Ox 95% on R/A; Weight 62.6 kg; Height 5 ft. 0 in. pf1 ; 03/14 00:21 Temp 96.3(A); kmf 02:15 BP 121 / 73; Pulse 64; Resp 16; Pulse Ox 97% on R/A; rv 03:00 BP 120 / 76; Pulse 61; Resp 16; Pulse Ox 97% on R/A; rv 04:00 BP 127 / 74; Pulse 73; Resp 17; Pulse Ox 97% on R/A; rv 05:00 BP 120 / 71; Pulse 63; Resp 16; Pulse Ox 98% on R/A; rv 03/13 23:48 Body Mass Index 26.95 (62.60 kg, 152.4 cm) pf1 MDM: 03/13 23:47 Patient medically screened. rn 03/14 05:16 Differential diagnosis: Ingestion/exposure to Seroquel. Data reviewed: vital signs, rn nurses notes, lab test result(s), EKG, and as a result, I will discharge patient. Counseling: I had a detailed discussion with the patient and/or guardian regarding the historical points, exam findings, and any diagnostic results supporting the discharge/admit diagnosis, lab results, the need for outpatient follow up, to return to the emergency department if symptoms worsen or persist or if there are any questions or concerns that arise at home. Response to treatment: the patient's symptoms have mildly improved after treatment, and as a result, I will discharge patient. Special discussion: I discussed with the patient/guardian in detail that at this point there is no indication for admission to the hospital. It is understood, however, that if the symptoms persist or worsen the patient needs to return immediately for re-evaluation. Based on the history and exam findings, there is no indication for further emergent testing or inpatient evaluation. I discussed with the patient/guardian the need to see the primary care provider for further evaluation of the symptoms. ED course: Patient sleepy but arousable, has been up to use the bathroom several times without falling. No oxygen requirement. No concern for not protecting airway. Awakens to voice and tactile stimulation. Patient accidentally took another person Seroquel, 1 pill, sedated but observed here for more than 6 hours postingestion with improvement. Now more alert. Family comfortable taking him home at this point and letting him sleep it off. Recommend closer medication reconciliation and administration.. 03/13 23:56 Order name: Basic Metabolic Panel; Complete Time: 00:39 rn 03/13 23:56 Order name: EKG; Complete Time: 23:56 rn 03/13 23:56 Order name: Cardiac monitoring; Complete Time: 00:16 rn 03/13 23:56 Order name: O2 Sat Monitoring; Complete Time: 00:16 rn 03/13 23:56 Order name: EKG - Nurse/Tech; Complete Time: 00:16 rn 03/13 23:56 Order name: IV Start; Complete Time: 00:16 rn EC:09 Rate is 64 beats/min. Rhythm is regular. QRS [place] is Normal. PA interval is normal. QRS rn interval is normal. QT interval is prolonged at 470 msec. No Q waves. T waves are Normal. No ST changes noted. Clinical impression: Normal sinus rhythm with prolonged QT. Interpreted by me. Reviewed by me. Administered Medications: 00:12 Drug: NS 0.9% IV 500 ml IV at bolus once Route: IV; Rate: bolus; Site: left antecubital;rv 01:45 Follow up: IV Status: Completed infusion; IV Intake: 500ml rv 01:30 Drug: Magnesium Sulfate IVPB 1 grams IVPB once over 1 hrs Route: IVPB; Infused Over: 1 rv hrs; Site: left antecubital; 05:54 Follow up: Response: No adverse reaction; IV Status: Completed infusion; IV Intake: rv 100ml 02:01 Drug: Potassium Chloride IV 10 mEq IV at calculated rate once; administer over 1-2 rv hours Route: IV; Rate: calculated rate; Site: left antecubital; Disposition Summary: 03/14/23 05:18 Discharge Ordered Notes: Location: Home rn Problem: new rn Symptoms: have improved rn Condition: Stable rn Diagnosis - Adverse effect of other drugs, medicaments and biological substances, initial rn encounter Followup: rn - With: Private Physician - When: As needed - Reason: Recheck today's complaints, Re-evaluation by your physician Forms: - Medication Reconciliation Form rn - Thank You Letter rn - Antibiotic international bank manager - Prescription Opioid Use rn - Patient Portal Instructions rn - Leadership Thank You Letter rn Signatures: Dispatcher [employer] Jerrod Smart MD MD rn Vicente, Ronaldo RN RN Stefani Farfan RN RN pf1
[2023-03-14 06:30] VITALS: TEMP 96.3
[2023-03-14 06:37] VITALS: BP 120/71; O2SAT 98
--- NOTE | 2023-03-17 16:56 | EKG ---
Test Date: 2023-03-14 Test Time: 00:11:12 Coffee Roaster: TALYA MEASUREMENT RESULTS: Intervals: Rate: 67 NV: 162 QRSD: 94 QT: 448 QTc: 473 [place]: P: 77 NV: 162 QRS: 31 T: 36 INTERPRETIVE STATEMENTS: Sinus rhythm with occasional premature ventricular complexes Prolonged QT Abnormal ECG No previous ECG available for comparison Electronically Signed On 03-17-23 16:52:56 [facility] DIRECTOR by Rolando Majano
== END 2023-03-14 05:56 | disposition home or self-care (01) ==
LOC: ER 23:41
DX: T43.591A Poisoning by other antipsychotics and neuroleptics, accidental (unintentional), initial encounter (principal); R53.83 Other fatigue; I10 Essential (primary) hypertension; E11.9 Type 2 diabetes mellitus without complications; M10.9 Gout, unspecified; E78.00 Pure hypercholesterolemia, unspecified; K21.9 Gastro-esophageal reflux disease without esophagitis
CPT/HCPCS: 96365; 96361; 93005; 80048; 36415; 96375; 99285; 96366; J3480; J3475; J7040